=== PATIENT | male | born 1990 | race Two or more races ===

== ENCOUNTER 2024-01-02 08:25 | Emergency (ER) | payer MEDICAID ==
[~2024-01-02] VITALS: Ht 170.2 cm; Wt 70.0 kg
[2024-01-02 09:01] VITALS: BP 108/68; PULSE 69; RESP 18; TEMP 97.5; O2SAT 99
[2024-01-02] MEDS ORDERED: BACDST PO (09:03)
[2024-01-02] MEDS ORDERED: NAPR-746 PO (09:03)
== END 2024-01-02 09:09 | disposition home or self-care (01) ==
LOC: ER 08:25
DX: L02.31 Cutaneous abscess of buttock (principal); Z79.899 Other long term (current) drug therapy

== ENCOUNTER 2024-01-14 08:49 | Emergency (ER) | payer MEDICAID ==
[~2024-01-14] VITALS: Ht 170.2 cm; Wt 71.0 kg
[~2024-01-14 08:49] MED LIST: BACDST PO; NAPR-746 PO
[2024-01-14 08:55] VITALS: TEMP 98
[2024-01-14 08:59] VITALS: BP 124/80; PULSE 67; RESP 16; O2SAT 98
[2024-01-14 11:05] LABS: Urine Bacteria None Seen /hpf (None Seen)
[2024-01-14 11:36] LABS: Urine Blood Negative /uL (Negative); Urine Clarity Clear (Clear); Urine Color Light-Yellow (Yellow); Urine Protein, UAD Negative (Negative); Urine Specific Gravity 1.012 (1.001-1.035); Urine Urobilinogen Normal (Negative); Urine WBC <1 /hpf (0 - 3); Urine pH 5.5 (5.0-9.0)
[2024-01-15 17:06] LABS: Chlamydia Trachomatis, NAA Negative (Negative); Neisseria gonorrhoeae, NAA Negative (Negative)
== END 2024-01-14 11:08 | disposition home or self-care (01) ==
LOC: ER 08:49
DX: L02.91 Cutaneous abscess, unspecified (principal); A64 Unspecified sexually transmitted disease; Z48.00 Encounter for change or removal of nonsurgical wound dressing; Z20.6 Contact with and (suspected) exposure to human immunodeficiency virus [HIV]
CPT/HCPCS: 81001; 86592; 86703; 87389